=== PATIENT | female | born 1960 | race Caucasian/White ===

== ENCOUNTER 2020-07-25 08:25 | Inpatient (IN) | payer BC ==
[~2020-07-25] VITALS: Ht 157.5 cm; Wt 74.8 kg
[2020-07-25 08:28] VITALS: BP_SYST 103
[2020-07-25] MEDS ORDERED: NACL 0.9% 1,000 ML IV ONE (08:45)
[2020-07-25] MEDS ORDERED: MORPHINE 4 MG/ML INJ. SYRINGE IVP ONE (08:45)
[2020-07-25] MEDS ORDERED: ONDANSETRON HCL 4 MG/2 ML VIAL IVP ONE (08:45)
[2020-07-25 09:11] LABS: BASOPHILS # (AUTO) 0.1 K/uL (0.0-0.2); BASOPHILS % (AUTO) 0.4 % (0.0-2.0); EOSINOPHILS % (AUTO) 0.1 % (0.0-4.0); HEMATOCRIT 46.8 % (36-48); HEMOGLOBIN 16.1 g/dL (12.0-16.0); LYMPHOCYTES # (AUTO) 0.7 K/uL (1.0-5.5); MEAN CORPUSCULAR HEMOGLOBIN 34 pg (27-31); MEAN CORPUSCULAR HGB CONC 34 % (32-36); MEAN CORPUSCULAR VOLUME 97 fL (79.0-98.0); MONOCYTES # (AUTO) 1.1 K/uL (0.0-1.0); MONOCYTES % (AUTO) 4.6 % (1.7-9.3); NEUTROPHILS # (AUTO) 21.4 K/uL (1.8-7.7); PLATELET COUNT (AUTO) 259 K/uL (130-430); RED BLOOD CELL COUNT(AUTO) 4.82 MIL/uL (4.2-6.2); RED CELL DISTRIBUTION WIDTH 14.3 % (9.0-15.0); WHITE BLOOD COUNT (AUTO) 23.2 K/uL (4.8-10.8)
[2020-07-25 09:23] LABS: CALCIUM 9.5 mg/dL (8.4-11.0); CREATININE 1.55 mg/dL (0.55-1.30); POTASSIUM 4.6 mmol/L (3.5-5.1)
[2020-07-25 09:33] LABS: ALBUMIN 4.3 g/dL (3.4-4.8); TOTAL BILIRUBIN 0.4 mg/dL (0.0-1.0)
[2020-07-25 09:37] LABS: NEUTROPHILS % (AUTO) 91.9 % (40.0-70.0)
[2020-07-25] MEDS ORDERED: VENL37.587 PO (09:51)
[2020-07-25] MEDS ORDERED: APRE30TA2 PO (09:51)
[2020-07-25] MEDS ORDERED: PROC10TA13 PO (09:51)
[2020-07-25] MEDS ORDERED: TAMO20TA4 PO (09:51)
[2020-07-25] MEDS ORDERED: FAMO20TA8 PO (09:51)
[2020-07-25 11:15] LABS: BILIRUBIN,URINE NEGATIVE (NEGATIVE); BLOOD, URINE NEGATIVE (NEGATIVE); CLARITY/URINE CLEAR (CLEAR); COLOR,URINE YELLOW (YELLOW); GLUCOSE,URINE NEGATIVE (NEGATIVE); KETONES,URINE 2+ (NEGATIVE); LEUKOCYTE ESTERASE ,URINE NEGATIVE (NEGATIVE); NITRITE, URINE NEGATIVE (NEGATIVE); PROTEIN URINE NEGATIVE (NEGATIVE); UROBILINOGEN,URINE 0.2 (0.2-1.0)
[2020-07-25] MEDS ORDERED: NACL 0.9% 2,000 ML IV ONE (12:00)
[2020-07-25] MEDS ORDERED: PIPERACILLIN/TAZO 3.375 GM in NS 50 ML IV ONE (13:00)
[2020-07-25] MEDS ORDERED: metroNIDAZOLE 500 mg/NS 100 ML IV ONE (13:00)
[2020-07-25] MEDS ORDERED: PIPERACILLIN/TAZOBACTAM 3.375 GM/VIAL (ZOSYN) IV ONE (13:07)
[2020-07-25 17:00] VITALS: BP_SYST 135
[2020-07-25] MEDS ORDERED: MORPHINE 2 MG/ML INJ. SYRINGE IVP PRN ×2 (17:00)
[2020-07-25] MEDS ORDERED: ACETAMINOPHEN 650 MG SUPP.RECT RC PRN (17:00)
[2020-07-25] MEDS ORDERED: ONDANSETRON HCL 4 MG/2 ML VIAL IVP PRN (17:00)
[2020-07-25] MEDS ORDERED: NALOXONE HCL 0.4 MG/ML AMP (NARCAN) IVP PRN (17:00)
[2020-07-25] MEDS: NACL 0.9% 1,000 ML IV SCH (17:18)
[2020-07-25] MEDS ORDERED: ACETAMINOPHEN 500 MG TABLET PO ONE (18:15)
[2020-07-25] MEDS: PANTOPRAZOLE SODIUM 40 MG/VIAL (PROTONIX) IVP SCH (18:40)
[2020-07-25] MEDS: PIPERACILLIN/TAZO 3.375/DEX-IS 50 ML IV SCH (18:40)
[2020-07-25 20:00] VITALS: BP_SYST 120
[2020-07-26] MEDS: PIPERACILLIN/TAZO 3.375/DEX-IS 50 ML IV SCH ×5 (00:31→22:25)
[2020-07-26 00:32] VITALS: BP_SYST 153
[2020-07-26] MEDS: NACL 0.9% 1,000 ML IV SCH ×2 (03:49→12:45)
[2020-07-26 06:45] LABS: BASOPHILS % (AUTO) 0.3 % (0.0-2.0); EOSINOPHILS # (AUTO) 0.1 K/uL (0.0-0.4); EOSINOPHILS % (AUTO) 0.9 % (0.0-4.0); HEMATOCRIT 37.6 % (36-48); HEMOGLOBIN 12.6 g/dL (12.0-16.0); LYMPHOCYTES # (AUTO) 1.1 K/uL (1.0-5.5); LYMPHOCYTES % (AUTO) 9.9 % (20.5-51.5); MEAN CORPUSCULAR HEMOGLOBIN 33 pg (27-31); MEAN CORPUSCULAR HGB CONC 34 % (32-36); MEAN CORPUSCULAR VOLUME 99 fL (79.0-98.0); MONOCYTES # (AUTO) 1.1 K/uL (0.0-1.0); MONOCYTES % (AUTO) 9.8 % (1.7-9.3); NEUTROPHILS # (AUTO) 9.1 K/uL (1.8-7.7); NEUTROPHILS % (AUTO) 79.1 % (40.0-70.0); PLATELET COUNT (AUTO) 185 K/uL (130-430); RED BLOOD CELL COUNT(AUTO) 3.82 MIL/uL (4.2-6.2); RED CELL DISTRIBUTION WIDTH 14.7 % (9.0-15.0); WHITE BLOOD COUNT (AUTO) 11.5 K/uL (4.8-10.8)
[2020-07-26 07:02] LABS: ALBUMIN 2.8 g/dL (3.4-4.8); CALCIUM 7.3 mg/dL (8.4-11.0); CREATININE 0.97 mg/dL (0.55-1.30); POTASSIUM 3.9 mmol/L (3.5-5.1); THYROID STIMULATING HORMONE 0.89 uIu/mL (0.36-3.74); TOTAL BILIRUBIN 0.4 mg/dL (0.0-1.0)
[2020-07-26] MEDS ORDERED: GASTROGRAFIN 120 ML ONE (08:19)
[2020-07-26 10:05] VITALS: BP_SYST 121
[2020-07-26 12:13] VITALS: BP_SYST 147
[2020-07-26 16:02] VITALS: BP_SYST 130
[2020-07-26] MEDS: PANTOPRAZOLE SODIUM 40 MG/VIAL (PROTONIX) IVP SCH (17:03)
[2020-07-26 20:30] VITALS: BP_SYST 130
[2020-07-26] MEDS ORDERED: MAG-AL HYDROX/SIMETH 30 ML UDC PO PRN (22:15)
[2020-07-26] MEDS ORDERED: HYDROcodone/ACETAMIN 5-325 MG TAB (NORCO/ VICODIN) PO ONE (22:15)
[2020-07-26] MEDS ORDERED: HYDROcodone/ACETAMIN 5-325 MG TAB (NORCO/ VICODIN) PO PRN (22:15)
[2020-07-26] MEDS: NORMAL SALINE 5 ML DISP.SYRIN IVF SCH (22:25)
[2020-07-27 00:37] VITALS: BP_SYST 139
[2020-07-27 06:01] LABS: BASOPHILS % (AUTO) 0.5 % (0.0-2.0); EOSINOPHILS # (AUTO) 0.1 K/uL (0.0-0.4); EOSINOPHILS % (AUTO) 1.7 % (0.0-4.0); HEMATOCRIT 35.5 % (36-48); HEMOGLOBIN 11.9 g/dL (12.0-16.0); LYMPHOCYTES # (AUTO) 1.1 K/uL (1.0-5.5); LYMPHOCYTES % (AUTO) 13.6 % (20.5-51.5); MEAN CORPUSCULAR HEMOGLOBIN 33 pg (27-31); MEAN CORPUSCULAR HGB CONC 34 % (32-36); MEAN CORPUSCULAR VOLUME 99 fL (79.0-98.0); MONOCYTES % (AUTO) 12.1 % (1.7-9.3); NEUTROPHILS # (AUTO) 5.7 K/uL (1.8-7.7); NEUTROPHILS % (AUTO) 72.1 % (40.0-70.0); PLATELET COUNT (AUTO) 171 K/uL (130-430); RED BLOOD CELL COUNT(AUTO) 3.59 MIL/uL (4.2-6.2); RED CELL DISTRIBUTION WIDTH 14.6 % (9.0-15.0); WHITE BLOOD COUNT (AUTO) 7.9 K/uL (4.8-10.8)
[2020-07-27] MEDS: NORMAL SALINE 5 ML DISP.SYRIN IVF SCH ×2 (06:01→14:07)
[2020-07-27] MEDS: PIPERACILLIN/TAZO 3.375/DEX-IS 50 ML IV SCH ×3 (06:01→17:43)
[2020-07-27 06:12] LABS: ALBUMIN 2.8 g/dL (3.4-4.8); CALCIUM 7.7 mg/dL (8.4-11.0); CREATININE 1.03 mg/dL (0.55-1.30); POTASSIUM 3.7 mmol/L (3.5-5.1); TOTAL BILIRUBIN 0.3 mg/dL (0.0-1.0)
[2020-07-27 07:45] VITALS: BP_SYST 120
[2020-07-27 12:00] VITALS: BP_SYST 124
[2020-07-27 16:00] VITALS: BP_SYST 144
[2020-07-27] MEDS: PANTOPRAZOLE SODIUM 40 MG/VIAL (PROTONIX) IVP SCH (17:43)
[2020-07-27] MEDS ORDERED: METR500T PO (19:07)
[2020-07-27 19:35] VITALS: BP_SYST 144
== END 2020-07-27 20:27 | disposition home or self-care (01) | DRG 871 ==
LOC: SED 08:25 → STU 16:16
PROVIDERS: ADMIT Internal Medicine; ATTEND Internal Medicine
DX: A41.9 Sepsis, unspecified organism (principal); N17.0 Acute kidney failure with tubular necrosis; K56.600 Partial intestinal obstruction, unspecified as to cause; R65.20 Severe sepsis without septic shock; F32.9 Major depressive disorder, single episode, unspecified; R73.9 Hyperglycemia, unspecified; Z20.822 Contact with and (suspected) exposure to COVID-19; E86.0 Dehydration; M13.80 Other specified arthritis, unspecified site; Z92.21 Personal history of antineoplastic chemotherapy; Z85.3 Personal history of malignant neoplasm of breast; Z90.11 Acquired absence of right breast and nipple; Z98.82 Breast implant status; Z91.011 Allergy to milk products; Z79.899 Other long term (current) drug therapy
CPT/HCPCS: 36415; 71045; 74250-TC; 76376; 76770; 80053; 81003; 82150-TC; 83605; 83690-TC; 84443-TC; 85025; 87040-TC; 96365; 96367; 96375; 99291; C9113; G0378; J2270; J2405; J2543; J3490; J7030; Q9963

== ENCOUNTER 2021-10-06 04:09 | Emergency (ER) | payer BC ==
[~2021-10-06] VITALS: Ht 157.5 cm; Wt 81.6 kg
[~2021-10-06 04:09] MED LIST: APRE30TA2 PO; FAMO20TA8 PO; METR500T PO; PROC10TA13 PO; TAMO20TA4 PO; VENL37.587 PO
[2021-10-06 05:07] VITALS: BP_SYST 132
--- NOTE | 2021-10-06 05:13 | NUR ---
Patient triaged and placed in waiting room. VS checked and patient appears in no acute distress at this time. Accompanied by family , awaiting available bed, and MD notified of need for MSE.
[2021-10-06] MEDS ORDERED: NACL 0.9% 1,000 ML IV ONE ×2 (05:15→07:45)
--- NOTE | 2021-10-06 06:27 | NUR ---
Patient ambulatory to bed 8 for evaluation and treatment
[2021-10-06 06:37] LABS: BASOPHILS % (AUTO) 0.3 % (0.0-2.0); EOSINOPHILS % (AUTO) 0.1 % (0.0-4.0); HEMOGLOBIN 15.4 g/dL (12.0-16.0); LYMPHOCYTES # (AUTO) 0.8 K/uL (1.0-5.5); MEAN CORPUSCULAR HEMOGLOBIN 32 pg (27-31); MEAN CORPUSCULAR HGB CONC 35 % (32-36); MEAN CORPUSCULAR VOLUME 92 fL (79.0-98.0); MONOCYTES # (AUTO) 1.2 K/uL (0.0-1.0); NEUTROPHILS # (AUTO) 14.7 K/uL (1.8-7.7); NEUTROPHILS % (AUTO) 87.6 % (40.0-70.0); PLATELET COUNT (AUTO) 258 K/uL (130-430); RED BLOOD CELL COUNT(AUTO) 4.79 MIL/uL (4.2-6.2); RED CELL DISTRIBUTION WIDTH 14.2 % (9.0-15.0); WHITE BLOOD COUNT (AUTO) 16.7 K/uL (4.8-10.8)
[2021-10-06 06:56] LABS: CALCIUM 9.3 mg/dL (8.4-11.0); CREATININE 1.39 mg/dL (0.55-1.30); POTASSIUM 4.8 mmol/L (3.5-5.1)
[2021-10-06 07:01] LABS: TOTAL BILIRUBIN 0.3 mg/dL (0.0-1.0)
[2021-10-06] MEDS ORDERED: ONDANSETRON HCL 4 MG/2 ML VIAL IVP ONE ×2 (07:30)
[2021-10-06 07:35] LABS: BILIRUBIN,URINE 1+ (NEGATIVE); BLOOD, URINE NEGATIVE (NEGATIVE); CLARITY/URINE CLEAR (CLEAR); GLUCOSE,URINE TRACE (NEGATIVE); KETONES,URINE TRACE (NEGATIVE); LEUKOCYTE ESTERASE ,URINE 1+ (NEGATIVE); NITRITE, URINE POSITIVE (NEGATIVE)
[2021-10-06 07:44] LABS: COLOR,URINE AMBER (YELLOW)
[2021-10-06 07:45] LABS: PROTEIN URINE 1+ (NEGATIVE)
[2021-10-06] MEDS ORDERED: MORPHINE 4 MG INJ. 4 MG/ML VIAL IVP ONE (07:45)
[2021-10-06] MEDS ORDERED: PIPERACILLIN/TAZO 3.375 GM in NS 50 ML IV ONE (07:45)
[2021-10-06 08:17] LABS: BACTERIA,URINE RARE /HPF (None Seen)
[2021-10-06] MEDS ORDERED: NS 500 ML IV ONE (08:30)
--- NOTE | 2021-10-06 08:44 | NUR ---
Admit bed requested Patient will be admitted to care of Dr Lawrence Admitted to Med surge unit. Diagnosis Small bowel obstruction Inpatient (Yes or No)Y Observation (Yes or No) N Orientation concerns or request close to nursing station (Yes or No) N Covid Status Pending On vent or bipap No Isolation requirements No Needs a sitter No From Home (Yes or if No enter name of facility) Yes Requires Dialysis (Yes or No) No Med Rec Completed (Yes of No) Yes
[2021-10-06] MEDS ORDERED: MAGNESIUM SULFATE 50 ML IV PRN (08:45)
[2021-10-06] MEDS ORDERED: ACETAMINOPHEN 325 MG TABLET PO PRN (08:45)
[2021-10-06] MEDS ORDERED: LORazepam 2 MG/ML VIAL IVP PRN (08:45)
[2021-10-06] MEDS ORDERED: POTASSIUM CHLORIDE 20 MEQ TAB.PRT.SR PO PRN (08:45)
[2021-10-06] MEDS ORDERED: DOCUSATE SODIUM 100 MG CAPSULE PO PRN (08:45)
[2021-10-06] MEDS ORDERED: MORPHINE 2 MG/ML INJ. SYRINGE IVP PRN ×2 (08:45)
[2021-10-06] MEDS ORDERED: ZOLPIDEM TARTRATE 5 MG TABLET PO PRN (08:45)
[2021-10-06] MEDS ORDERED: D5NS 1,000 ML IV SCH (08:45)
[2021-10-06] MEDS ORDERED: MUPIROCIN 2% TOPICAL OINTMENT 22 GM NS PRN (08:45)
[2021-10-06] MEDS ORDERED: ONDANSETRON HCL 4 MG/2 ML VIAL IVP PRN (08:45)
[2021-10-06] MEDS ORDERED: HEPARIN SODIUM,PORCINE 5,000 UNITS/ML VIAL SUBCUT SCH (09:00)
--- NOTE | 2021-10-06 09:24 | NUR ---
Admitting doctor Howard at bedside.
[2021-10-06 09:25] VITALS: BP_SYST 124
--- NOTE | 2021-10-06 09:52 | NUR ---
Pt transferred to X-ray.
[2021-10-06] MEDS ORDERED: GASTROGRAFIN 120 ML ONE (09:54)
--- NOTE | 2021-10-06 13:32 | NUR ---
Pt ambulated to the bathroom x2 with liquid stool. Both within 5 minutes of each other. S/P oral contrast. Hung 1L NS, tolerating well. Denies pain. at bedside.
--- NOTE | 2021-10-06 14:45 | NUR ---
Patient does not wish to proceed with medical care recommended by Dr. Quinones. Patient given information related to possible complications, up to and including , which could occur as a result of leaving hospital at this time. Patient verbalizes understanding of risks involved leaving against medical advice. Patient has signed AMA form.
[2021-10-06] MEDS ORDERED: cefTRIAXone 1 GM in D5W 50 ML IV SCH (15:00)
== END 2021-10-06 14:50 | disposition left against medical advice (07) ==
LOC: SED 04:09
DX: K56.609 Unspecified intestinal obstruction, unspecified as to partial versus complete obstruction (principal); Z91.011 Allergy to milk products; Z79.899 Other long term (current) drug therapy; Z20.822 Contact with and (suspected) exposure to COVID-19
CPT/HCPCS: 36415; 71045; 74176; 74250; 76376; 80053; 81000; 83605; 83690; 85025; 87040; 87086; 87426; 96361; 96365; 96372; 96375; 99291; J1644; J2270; J2405; J2543; J7030; Q9963; J0696; J7060